=== PATIENT | female | born 2000 | race African-American/Black ===

== ENCOUNTER 2022-03-25 23:42 | Observation (INO) | payer OTHER, SELFPAY ==
[2022-03-25 23:50] VITALS: BMI 29.7
[2022-03-25 23:56] VITALS: BP 113/60; PULSE 80
[2022-03-26] VITALS: BP 125/59; PULSE 75; TEMP 36.2
[2022-03-26 00:16] VITALS: BP 114/78; PULSE 80
[2022-03-26 00:31] VITALS: BP 112/48; PULSE 82
[2022-03-26] MEDS: TERBUTALINE SULFATE 1 MG/ML VIAL 0.25 MG SUB-Q (01:01)
[2022-03-26] MEDS: LACTATED RINGERS 1,000 ML 999 ML IV CONT (01:02)
--- NOTE | 2022-03-26 02:26 | OBADM ---
This patient, Stephanie Gutierrez, admitted to the OB room Labor/Delivery/Recovery 105 for observation. Patient/family oriented to hospital policies and general routines including ID bracelet, bed and alarms, visiting hours, pain management, procedures, bathroom and other care routines, personal items, smoking policy, room service/diet, and visiting hours. Patient/Family are encouraged to report perceived risks to care and to ask questions if they do not understand what they are told or what they should do.
[2022-03-26 05:04] VITALS: BP 117/78; PULSE 98
[2022-03-26 05:05] VITALS: TEMP 36.3
--- NOTE | 2022-03-26 07:16 | PM.OBTRLD ---
OB - Triage/Final Diagnosis Visit Information Date of evaluation: 03/26/22 Reason for evaluation: threatened labor Comments/Additional reasons for admission: I have assessed the risk for this patient, Stephanie Gutierrez, and determined that she would benefit from observation care. Evaluation Vital signs: Vital Signs - 24 hr 03/25/22 23:56 03/26/22 00:00 03/26/22 00:16 Temperature 97.1 F L Pulse Rate 80 75 80 Blood Pressure 113/60 125/59 L 114/78 Oxygen Delivery 03/26/22 00:31 03/26/22 05:04 03/26/22 05:05 Temperature 97.3 F L Pulse Rate 82 98 Blood Pressure 112/48 L 117/78 Oxygen Delivery 03/25/22 23:50 Temperature Pulse Rate Blood Pressure Oxygen Delivery Room Air
== END 2022-03-26 05:59 | disposition home or self-care (01) ==
PROVIDERS: Admitting Provider Obstetrics & Gynecology; Visit Provider Obstetrics & Gynecology
DX: O47.03 False labor before 37 completed weeks of gestation, third trimester (principal); Z3A.36 36 weeks gestation of pregnancy
CPT/HCPCS: 96372; G0378; G0379; J3105; J7120